=== PATIENT | male | born 1980 | race Caucasian/White ===

== ENCOUNTER → 2017-02-15 | Day surgery (SDC) | payer OTHER ==
[~2017-02-15] VITALS: Ht 185.4 cm; Wt 154.0 kg
[~2017-02-15] MED LIST: CPAP INH; NORCO 5-325 TA1 EACH PO; PROVENTIL OR V6.7 GM INH
--- NOTE | ~2017-02-15 | OR ---
PATIENT'S NAME: JYOTSNA SALGADO [facility] AGE: 36 Y [address] ROOM: [place] [address] [place] [facility] [place]: 02/15/2017 OR/Procedure Report DISCHARGE DATE: FAMILY PHYSICIAN: Boo Bray MD ATTENDING PHYSICIAN: Isaac Fuentes SURGEON: Isaac Fuentes MD COIL CONNECTOR REPAIRER: Low Tanner PA-C. DATE OF PROCEDURE: 02/15/2017 PREOPERATIVE DIAGNOSIS: Symptomatic cholelithiasis. POSTOPERATIVE DIAGNOSIS: Symptomatic cholelithiasis. PROCEDURE: Laparoscopic cholecystectomy with intraoperative cholangiogram. FINDINGS: There were no filling defects present. ESTIMATED BLOOD LOSS: Less than 20 mL. COMPLICATIONS: None. INDICATIONS: The patient is a 36-year-old male, who presented with abdominal pain in the right upper quadrant and elevated liver function test. He had an ultrasound that revealed stones. We discussed cholecystectomy with the patient as well as cholangiogram; the risks, benefits, and alternatives; and he elected to proceed. DESCRIPTION OF PROCEDURE: The patient was taken to the operating room, he was placed supine, given IV sedation, subsequently intubated. His abdomen was prepped with ChloraPrep and sterilely draped. Local anesthetic was infiltrated just superior to the umbilicus. A transverse incision was created. The abdomen was elevated. A Veress needle was inserted. Pneumoperitoneum was induced. Following this, a 5 mm trocar was inserted followed by insertion of the camera. There was no injury from initial trocar placement. Three more trocars were then positioned, an 11 mm epigastric and two 5 mm right subcostal ports. Skin overlying the peritoneum was first anesthetized prior to making incisions. All 3 of these trocars were inserted under direct visualization. The gallbladder was then grasped, it was elevated over the dome of the liver. There were adhesions that had to be taken down. This was done bluntly and with electrocautery. The infundibulum was then grasped, retracted inferolaterally to expose the Calot triangle. The cystic duct and artery were dissected around circumferentially. A critical window was able to be obtained. The cystic duct was clipped near the gallbladder, it was partially transected. A cholangiogram catheter was inserted. This was a balloon-tip type. This was inserted in the cystic duct. The balloon was PATIENT'S NAME: JYOTSNA SALGADO [facility] AGE: 36 Y [address] ROOM: [place] [address] LOCATION: [facility] [place] DATE: 02/15/2017 OR/Procedure Report DISCHARGE DATE: FAMILY PHYSICIAN: Boo Bray MD ATTENDING PHYSICIAN: Isaac Fuentes. Using fluoroscopy, we evaluated the bile duct with injection of contrast. There were no filling defects. Free flow of contrast into the duodenum as well as right and left hepatic ducts. The cholangiogram catheter was removed. The cystic duct was doubly clipped and divided. Cystic artery was also doubly clipped and divided. The gallbladder was then removed from liver bed using electrocautery. This was grasped and was brought out through the epigastric port site. There were a large number of very small stones in the lumen of the gallbladder. The operative field was then inspected, it appeared hemostatic. Clips appeared to be in good position on the cystic duct and artery. The area was irrigated. Fluid was removed. Prior to releasing the pneumoperitoneum, we did use a suture passer and 0 Vicryl suture to close the epigastric incision. This was then tied down. The pneumoperitoneum was then released. The trocars were removed. The trocar sites appeared hemostatic. All the skin edges were then closed with 4-0 Monocryl suture. Steri-Strips and sterile dressings were placed. Low Tanner was necessary for retraction and visualization throughout the case. ISAAC FUENTES MD BJO/modl /[id number] d: 02/15/172308 t: 02/18/17 0610, OPERATIVE SUMMARY
--- NOTE | 2017-02-15 18:36 | NUR ---
1615 PHASE 2 AND REPORT GIVEN TO QIAN NERI IN [facility]. PATIENT ALERT AND ORIETATED, ABLE TO MAKE NEEDS KNOW. GOOD PAIN CONTROL AT TIME OF VERBAL HAND OFF. VITALS STABLE. LATE ENTRY 1550 O2 WEANED TO 4 LITERS PER NC. TYSON HAS SEVERE SLEEP APNEA AND WHEN HE FIRST ARRIVED IN PHASE 1 HE KEPT OCCLUDING HIS AIRWAY WHILE SITTING AT 45 DEGREES.
== END ==
LOC: GPOC 02-14 16:00 → GSDC 10:56
PROC: 0FT44ZZ Resection of Gallbladder, Percutaneous Endoscopic Approach (ICD-10-PCS; principal; 2017-02-15)
PROC: BF121ZZ Fluoroscopy of Gallbladder using Low Osmolar Contrast (ICD-10-PCS; 2017-02-15)
DX: K80.20 Calculus of gallbladder without cholecystitis without obstruction (principal); J45.909 Unspecified asthma, uncomplicated; Z98.818 Other dental procedure status; Z79.899 Other long term (current) drug therapy
CPT/HCPCS: J0694; J1100; J2001; J2250; J2405; J3010; J7030